=== PATIENT | male | born 2000 | race Caucasian/White ===

== ENCOUNTER 2020-09-01 03:56 | Emergency (ER) | payer BC ==
[~2020-09-01] VITALS: Ht 175.3 cm; Wt 77.1 kg
[2020-09-01 04:03] VITALS: BP 134/84
[2020-09-01 04:18] VITALS: BP 134/84
--- NOTE | 2020-09-01 04:19 | NUR ---
at bedside for eval
[2020-09-01] MEDS ORDERED: SILVADENE20 GM TP (04:29)
[2020-09-01] MEDS ORDERED: HYDROCODON-ACE1 EA15 ORAL (04:29)
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
[2020-09-01] MEDS ORDERED: HYDROcodone/Acetamin 5/325 tab ORAL ONE (04:30)
--- NOTE | 2020-09-01 04:45 | NUR ---
pt aox4 given and understands discharge instructions. ambulatory out w steady gait
== END 2020-09-01 04:46 | disposition home or self-care (01) ==
LOC: EMR 04:20
DX: T23.201A Burn of second degree of right hand, unspecified site, initial encounter (principal); T31.0 Burns involving less than 10% of body surface; X08.8XXA Exposure to other specified smoke, fire and flames, initial encounter; Y92.9 Unspecified place or not applicable
CPT/HCPCS: 99282